=== PATIENT | female | born 1950 | race Caucasian/White ===

== ENCOUNTER 2016-12-17 06:33 | Day surgery (SDC) | payer OTHER ==
--- NOTE | 2016-12-15 15:17 | EKG Report ---
Test Performed on : 12/15/2016 3:16:43 PM Test Reason : PAT Blood Pressure : / mmHG Vent. Rate : 068 BPM Atrial Rate : 068 BPM P-R Int : 170 ms QRS Dur : 082 ms QT Int : 392 ms P-R-T Axes : 066 020 032 degrees QTc Int : 416 ms Normal sinus rhythm. Low voltage QRS Borderline ECG When compared with ECG of 09-JUN-2016 10:58, No significant change was found Confirmed by Fausto Perrin MD ([id number]) on 12/16/2016 9:43:59 PM
[2016-12-15 15:46] LABS: HEMATOCRIT 31.7 % (37.0-47.0); HEMOGLOBIN 10.7 g/dL (12.0-16.0); MCH 31.3 PG (27-31); MCHC 33.8 g/dL (33-37); MCV 92.7 FL (81-99); MPV 11.3 FL (7.4-10.4); RBC 3.42 XMIL (4.2-5.4)
[2016-12-15 16:00] LABS: AGAP 11; BUN 8 mg/dL (8-22); CALCIUM 8.7 mg/dL (8.8-10.2); CHLORIDE 103 mmol/L (98-107); COSMO 281; POTASSIUM 3.9 mmol/L (3.5-5.1); SODIUM 142 mmol/L (136-145); TCO2 28 mmol/L (25-35)
[2016-12-17] MEDS ORDERED: KEFZOL 1 GM/D5W 50 ML ONE (07:20)
[2016-12-17] MEDS ORDERED: REGLAN ONE (07:21)
[2016-12-17] MEDS ORDERED: PEPCID ONE (07:21)
[2016-12-17] MEDS ORDERED: LR 1,000 ML ONE ×2 (07:59→10:30)
[2016-12-17] MEDS ORDERED: MARCAINE 0.25% PF/EPI 1:200,000 ONE (08:03)
[2016-12-17] MEDS: MORPHINE ONE ×2 (09:50→09:55)
[2016-12-17] MEDS ORDERED: NORCO-10 PO PRN (10:27)
[2016-12-17] MEDS ORDERED: DILAUDID IV PRN (10:27)
[2016-12-17] MEDS ORDERED: ZOFRAN IV PRN (10:27)
[2016-12-17] MEDS ORDERED: XYLOCAINE-MPF 2% ONE (10:29)
[2016-12-17] MEDS ORDERED: ROBINUL ONE (10:29)
[2016-12-17] MEDS ORDERED: NEOSTIGMINE ONE (10:29)
[2016-12-17] MEDS ORDERED: AMIDATE ONE (10:29)
[2016-12-17] MEDS ORDERED: ZOFRAN ONE (10:29)
[2016-12-17] MEDS ORDERED: QUELICIN (DOSE) ONE (10:30)
[2016-12-17] MEDS ORDERED: OFIRMEV 1000 MG/ISOTONIC SOLN 100 ML ONE (10:30)
[2016-12-17] MEDS ORDERED: ZEMURON ONE (10:30)
[2016-12-17] MEDS ORDERED: NORCO-10 ONE (10:32)
[2016-12-17] MEDS ORDERED: TORADOL ONE (12:34)
--- NOTE | 2016-12-17 13:16 | OPERATIVE NOTE ---
PROCEDURE DATE: 12/17/2016 PREOPERATIVE DIAGNOSIS: Incisional hernia. POSTOPERATIVE DIAGNOSIS: Incisional hernia. PROCEDURE: Laparoscopic-assisted robotic incisional hernia repair. SURGEON: Cayden Soto MD ANESTHESIA: General. ESTIMATED BLOOD LOSS: 5 mL. COMPLICATIONS: None apparent. SPECIMENS: None. FINDINGS: There were 3 small hernia defects in her mid abdomen anteriorly, these were anywhere from 2 to 4 cm apart. The defects themselves measured approximately 1-2 cm each. There was preperitoneal fat herniating up into these defects. TECHNIQUE: The patient was brought to the operating room and placed supine on the table. General anesthesia was induced. She was then rolled up on her right side. She was prepped and draped in the usual sterile fashion after a Shields catheter was placed, 0.25% Marcaine with epinephrine was used to anesthetize our skin incisions. A 12 mm incision was made. An 8 mm incision was made in the left upper quadrant and entry into the peritoneal cavity was obtained under direct vision with the Optiview device. Pneumoperitoneum was established. The camera was inserted. There was no evidence of injury to underlying structures. We then found an acceptable area in her left lateral abdomen, where a 12 mm incision and port were placed under direct vision. Another 8 mm incision and port was placed in the left lower quadrant. This was done under direct vision. The robot was then brought in and docked to the ports. The instruments were inserted. I then went to the console, scored the peritoneum around the hernia defect in her mid abdomen, this was just above the umbilical area. The peritoneum was teased away from the overlying fascia, this revealed 2 more small hernia defects. There was preperitoneal fat herniating up into these spaces. I reduced all the preperitoneal fat bluntly and with scissors and cautery. Once the fat and peritoneum were teased away from the fascial defects, I then closed the defects with a continuance nonabsorbable 0 V-Loc suture in 2 directions. We then brought in a Symbotex dual layered circular hernia mesh. It was unfurled and laid out flat against the abdominal wall with the slick side facing the viscera and the rough side facing the fascia. It was anchored to the fascia with running 3-0 absorbable V-Loc sutures going in 2 directions. Once this was accomplished, the mesh was neatly splayed out against the abdominal wall. There were no significant gaps between the stitches. There was no bleeding. This appeared to be done safely. I then rejoined the sterile field. We took all the needles out and undocked the robot. I then closed the camera port site fascia with a 0 Vicryl using the Alcides-Tiffanie device under laparoscopic guidance and then removed the ports and desufflated the abdomen. The skin was closed with running 4-0 subcuticular Monocryl and Steri-Strips. There were no apparent complications. She was awakened in stable condition and transferred to the recovery room.
[2016-12-17 14:06] VITALS: BP 115/63
== END 2016-12-17 14:10 | disposition home or self-care (01) ==
LOC: OPS 06:33
PROVIDERS: ATTEND Surgery
DX: K43.2 Incisional hernia without obstruction or gangrene (principal)
CPT/HCPCS: 80048; 85027; 93005; 93010; J0131; J0330; J0690; J1885; J2270; J2405; J7120; J2710